=== PATIENT | female | born 1990 | race Caucasian/White ===

== ENCOUNTER 2017-02-06 12:24 | Emergency (ER) | payer OTHER ==
[2017-02-06 12:45] VITALS: BP 140/80; PULSE 100; RESP 16; TEMP 98.6; O2SAT 96
--- NOTE | 2017-02-06 12:57 | UCPHY ---
H & P Patient Type: Established Smoking Status: Former smoker Time Seen by Provider: 02/06/17 12:38 HPI/ROS: CHIEF COMPLAINT: Sore throat HPI: The patient is a 26-year-old female with no significant past medical history. She complains of sore throat that began last night. She complains of pain with swallowing but is able to swallow food and water. No fever or chills. REVIEW OF SYSTEMS: Aside from elements discussed in the HPI, a comprehensive 10-point review of systems was reviewed and is negative. PMH: None significant. SOCIAL HISTORY: Works as a event decorator. FAMILY HISTORY: Reviewed, noncontributory PHYSICAL EXAM: General:Patient is alert, in no acute distress. ENT:Eyes are normal to inspection. Mild tonsillomegaly which is symmetric on both sides. Small white exudate on right tonsil. No sign of peritonsillar abscess. No drooling. Very mild erythema. Normal voice. Neuro: Oriented x3. Normal motor function. Normal sensory function. (Marquis Hinds) Constitutional: Initial Vital Signs Temperature (C) 37 C 02/06/17 12:42 Heart Rate 100 02/06/17 12:42 Respiratory Rate 16 02/06/17 12:42 Blood Pressure 140/80 H 02/06/17 12:42 O2 Sat (%) 96 02/06/17 12:42 O2 Delivery Mode Room Air Allergies/Adverse Reactions: No Known Allergies Allergy (Verified 02/07/17 16:26) Home Medications: Medication Instructions Recorded Sertraline HCl 02/06/17 Azithromycin [Zithromax] 500 mg PO DAILY #5 tab 02/07/17 MDM/Departure - [facility] ED Course/Re-evaluation: Rapid strep test is negative. I think the patient is appropriate for outpatient management and do not think antibiotics are indicated. She is comfortable with this plan. (Marquis Hinds) - Depart Disposition: Home, Routine, Self-Care Clinical Impression: Pharyngitis Condition: Good Instructions: Pharyngitis (ED) Additional Instructions: Follow-up with your primary doctor within 72 hours. Return to the Emergency Department for high fever, difficulty swallowing, difficulty tolerating liquids , neck pain or stiffness, shortness of breath or other concerns. Use Tylenol and/or ibuprofen as directed for pain. Drink plenty of fluids. Referrals: NONE *PRIMARY CARE P,. [Primary Care Provider] - As per Instructions - PQRS PQRS Measurement: 134: Depression screening and followup, PRIME MD-PHQ2 (12 years and older) Over the last 2 weeks, how often have you been bothered by any of the following problems? 1. Feeling down, depressed, or hopeless? 2. Little interest or pleasure in doing things? Patient answered no to both 1 and 2 130: Documentation of medications. Reviewed all patient medications, doses, route and frequency. 226: Do you smoke? No. 51: 18 years old and older with diagnosis of COPD, spirometry performance. Spirometry not performed; equipment not available. Patient has no history of COPD 52: 18 years old and older with COPD and symptoms of COPD or FEV1<60% predicted prescribed a B Agonist. Spirometry not performed; equipment not available. (Marquis Hinds)
== END 2017-02-06 13:05 | disposition home or self-care (01) ==
LOC: CED 12:24
DX: J02.9 Acute pharyngitis, unspecified (principal); Z87.891 Personal history of nicotine dependence
CPT/HCPCS: 87880-PO; G0463-PO

== ENCOUNTER 2017-02-07 16:16 | Emergency (ER) | payer OTHER ==
[2017-02-07 16:30] VITALS: BP 135/69; PULSE 114; RESP 14; TEMP 100.8; O2SAT 97
[2017-02-07] MEDS ORDERED: DEXAMETHASONE 4 MG TAB PO ONE (16:47)
[2017-02-07] MEDS ORDERED: ACETAMINOPHEN 325 MG TAB PO ONE (16:47)
--- NOTE | 2017-02-07 16:51 | UCPHY ---
H & P Time Seen by Provider: 02/07/17 16:37 Patient Type: Established HPI/ROS: This patient has a sore throat. She has a sore throat for 2 days. She was seen yesterday in clinic with a negative rapid strep at that time subsequent negative DNA strep. However she has developed fevers, significant increase in pain and swelling and onset of exudate to the tonsils came in for a recheck. She reports taking Aleve at 2:30 p.m.-1 tab with partial relief still persistent fever. She has mild right ear pain associated with her symptoms. This is increased slightly since yesterday. ROS: Fevers but no chills. No other constitutional symptoms. HEENT: No nasal congestion. Pulmonary: No significant coughing GI: No vomiting she does have decreased appetite. No skin rash. No arthralgias. 7 point ROS is otherwise negative. Past Medical/Surgical History: Otherwise healthy severe depression on sertraline Smoking Status: Former smoker Physical Exam: Physical Exam Vital signs are normal. General: No acute distress HEENT: Nose: Clear bilaterally. No sinus tenderness to percussion. Ears: External canals and tympanic membranes are clear with no erythema or abnormal findings bilaterally. Oropharynx: 3+ tonsillar swelling with exudates bilaterally erythema. No drooling or stridor. No significant dysphonia. Eyes: Pupils equal and react to light. Extraocular motions are intact. Neck: Supple with moderate anterior cervical lymphadenopathy bilaterally. Lungs: Clear to auscultation bilaterally with no rales, rhonchi or wheeze. No respiratory distress. Cardiac: Regular rate and rhythm with no murmur gallop or rub Skin: No rash or pallor. Neuro: Alert with no focal deficits noted. Initial differential diagnosis: Viral versus bacterial tonsillitis. Constitutional: Initial Vital Signs Temperature (C) 38.2 C 02/07/17 16:27 Heart Rate 114 H 02/07/17 16:27 Respiratory Rate 14 02/07/17 16:27 Blood Pressure 135/69 H 02/07/17 16:27 O2 Sat (%) 97 02/07/17 16:27 O2 Delivery Mode Room Air Allergies/Adverse Reactions: No Known Allergies Allergy (Verified 02/07/17 16:26) Home Medications: Medication Instructions Recorded Sertraline HCl 02/06/17 Azithromycin [Zithromax] 500 mg PO DAILY #5 tab 02/07/17 MDM/Departure - MDM Diagnostics: Given significant worsening by her description and physical exam findings compared to yesterday's visit I performed at general throat culture which is sent and pending. Patient is also true Decadron for tonsillar swelling, Tylenol for fever and penicillin for significant exudative tonsillitis Medications Given: Discontinued Medications Acetaminophen (Tylenol) 975 mg PO EDNOW ONE Stop: 02/07/17 16:48 Last Admin: 02/07/17 17:08 Dose: 975 mg Dexamethasone (Decadron) 8 mg PO EDNOW ONE Stop: 02/07/17 16:48 Last Admin: 02/07/17 17:08 Dose: 8 mg - Depart Disposition: Home, Routine, Self-Care Clinical Impression: Tonsillitis with exudate Condition: Good Instructions: Tonsillitis (ED) Additional Instructions: Diagnosis: Tonsillitis Plan: Ibuprofen (400- 600 mg per 6 hrs as needed) or Aleve (2 two times per day ) Tylenol in addition as needed for pain MD exclusion-rinse gargle spit in addition for throat pain if needed. you received single 8 mg dose of Decadron while here to help with swelling. Zithromax antibiotic as prescribed Return for any significant worsening despite treatment plan Stand Alone Forms: Work Excuse Prescriptions: Azithromycin [Zithromax] 500 mg PO DAILY #5 tab Referrals: NONE *PRIMARY CARE P,. [Primary Care Provider] - As per Instructions - PQRS PQRS Measurement: NA
== END 2017-02-07 17:10 | disposition home or self-care (01) ==
LOC: CED 16:16
DX: J03.90 Acute tonsillitis, unspecified (principal); H92.01 Otalgia, right ear; Z87.891 Personal history of nicotine dependence
CPT/HCPCS: 99214-PO; G0463-PO